=== PATIENT | female | born 1940 | race Caucasian/White ===

== ENCOUNTER 2024-04-10 23:07 | Inpatient (IN) | payer MEDICARE, BC ==
[2024-04-10] MEDS ORDERED: Sodium Chloride 0.9% 10 ML Syringe FLUSH PRN (23:37)
[2024-04-10 23:41] LABS: BASOPHILS PERCENT AUTO 0.1 % (0.0-1.0); EOSINOPHILS ABSOLUTE AUTO 0.1 K/mm3 (0.0-0.4); HEMATOCRIT 39.8 % (37.0-47.0); HEMOGLOBIN 12.7 gm/dl (12.0-16.0); IMMATURE GRAN ABSOLUTE AUTO 0.03 K/mm3 (0.00-0.05); IMMATURE GRAN PERCENT AUTO 0.3 % (0.0-0.4); LYMPHOCYTES ABSOLUTE AUTO 0.5 K/mm3 (1.0-4.8); LYMPHOCYTES PERCENT AUTO 5.3 % (24.0-44.0); MEAN CORPUSCULAR HEMOGLOBIN 28.3 pg (28.0-32.0); MEAN CORPUSCULAR HGB CONC 31.9 g/dl (32.0-36.0); MEAN CORPUSCULAR VOLUME 88.8 fl (83.0-99.0); MEAN PLATELET VOLUME 9.7 fl (9.4-12.3); MONOCYTES ABSOLUTE AUTO 0.6 K/mm3 (0.0-0.8); MONOCYTES PERCENT AUTO 6.7 % (0.0-8.0); NEUTROPHILS PERCENT AUTO 86.6 % (41.0-71.0); PLATELET COUNT,PLT 231 K/mm3 (150-400); RED BLOOD CELL COUNT 4.48 M/mm3 (4.10-5.30); WHITE BLOOD CELL COUNT,WBC 9.19 K/mm3 (3.9-11.3)
[2024-04-10] MEDS ORDERED: Piperacillin/Tazobactam 4.5 GM Vial ONE (23:42)
[2024-04-10] MEDS ORDERED: Sodium Chloride 0.9% 100 ML ONE (23:42)
[2024-04-10 23:54] LABS: INR 0.99; PROTHROMBIN TIME 10.5 SECONDS (9.7-12.0)
[2024-04-10] MEDS: Piperacillin/Tazobactam 4.5 GM in Sodium Chloride 0.9% 100 ML IV ONE (23:57)
[2024-04-10 23:59] LABS: BASE EXCESS VENOUS 6.4 (-4.0-2.0); BICARBONATE,VENOUS 31.7 meq/L (22-26); O2 SATURATION VENOUS 61.1; PCO2 VENOUS 50.5 mmHg (41-51); PH,VENOUS 7.42 (7.30-7.40)
[2024-04-11 00:01] LABS: LACTIC ACID 1.2 mmol/L (0.4-2.0)
[2024-04-11 00:04] LABS: A/G RATIO 0.6 (1-2); ALANINE AMINOTRANSFERASE,ALT 39 U/L (14-59); ALBUMIN 2.6 g/dl (3.4-5.0); ALKALINE PHOSPHATASE 166 U/L (46-116); ANION GAP 7.3 (5-15); ASPARTATE AMNIOTRANSFERASE,AST 26 U/L (15-37); BILIRUBIN TOTAL 0.6 mg/dL (0.2-1.0); BLOOD UREA NITROGEN,BUN 25 mg/dL (7-18); BUN/CREATININE RATIO 19.2 (14-18); CALCIUM 9.2 mg/dL (8.5-10.1); CARBON DIOXIDE,CO2 34 mEq/L (21-32); CHLORIDE,CL 98 mEq/L (98-107); CREATININE 1.3 mg/dL (0.55-1.02); ESTIMATED GFR 41 mL/min (>60); MAGNESIUM 1.8 mg/dL (1.8-2.4); POTASSIUM,K 3.3 mEq/L (3.5-5.1); SODIUM,NA 136 mEq/L (136-145); TROPONIN I HIGH SENSITIVITY 6 pg/mL (<=51)
[2024-04-11 00:06] LABS: GLUCOSE RANDOM 424 mg/dL (70-99)
[2024-04-11 00:29] LABS: OSMOLALITY,SERUM 297 mosm/kg (280-300)
[2024-04-11] MEDS: Sodium Chloride 0.9% 1,000 ML IV ONE (00:33)
[2024-04-11] MEDS ORDERED: Potassium Chloride 10 MEQ in Premix Bag 1 BAG IV ONE (00:57)
[2024-04-11] MEDS ORDERED: Naloxone 0.4 MG/ML SDV IVPUSH PRN (01:26)
[2024-04-11] MEDS: fentaNYL 100 MCG/2 ML SDV IVPUSH ONE (01:34)
[2024-04-11] MEDS: Potassium Chloride 10 MEQ in Premix Bag 1 BAG IV ONE ×2 (01:39→04:43)
[2024-04-11] MEDS: Insulin Regular, Human 100 Units/ML 3 ML Vial IV ONE (01:46)
[2024-04-11] MEDS: Sodium Chloride 0.9% 250 ML ONE (04:44)
[2024-04-11] MEDS: Insulin Regular, Human 100 Units/ML 10 ML Vial ONE (05:37)
[2024-04-11] MEDS: Insulin Glargine,Human Rec. Analog 100 Units/ML 3 ML Pen SUBCUT ONE (06:59)
[2024-04-11] MEDS: Sodium Chloride 0.9% 500 ML IV ONE (06:59)
[2024-04-11] MEDS ORDERED: Sennosides 8.6 MG Tab PO PRN (08:47)
[2024-04-11] MEDS ORDERED: Bisacodyl 10 MG Supp RECTAL PRN (08:47)
[2024-04-11] MEDS ORDERED: Acetaminophen 325 MG Tab PO PRN (08:47)
[2024-04-11] MEDS ORDERED: 50% Dextrose in Water 50 ML Syringe IVPUSH PRN (08:47)
[2024-04-11] MEDS ORDERED: Melatonin 3 MG Tab PO PRN (09:03)
[2024-04-11] MEDS: BREXPIPRAZOLE 3 MG PO SCH (09:17)
[2024-04-11] MEDS ORDERED: Insulin Lispro 100 Unit/ML 3 ML KwikPen SUBCUT SCH (09:30)
[2024-04-11] MEDS: Insulin Lispro 100 Unit/ML 3 ML KwikPen SUBCUT SCH ×2 (09:36→11:21)
[2024-04-11] MEDS: Doxycycline Monohydrate 100 MG Cap PO SCH (09:37)
[2024-04-11] MEDS: Enoxaparin 30 MG/0.3 ML Syringe SUBCUT SCH (09:37)
[2024-04-11] MEDS: Amoxicillin/Clavulanate K 500-125 MG Tab PO SCH (09:37)
[2024-04-11 11:04] LABS: A/G RATIO 0.6 (1-2); ALANINE AMINOTRANSFERASE,ALT 32 U/L (14-59); ALBUMIN 2.2 g/dl (3.4-5.0); ALKALINE PHOSPHATASE 143 U/L (46-116); ANION GAP 11.4 (5-15); ASPARTATE AMNIOTRANSFERASE,AST 21 U/L (15-37); BILIRUBIN TOTAL 0.7 mg/dL (0.2-1.0); BLOOD UREA NITROGEN,BUN 20 mg/dL (7-18); BUN/CREATININE RATIO 16.7 (14-18); CALCIUM 8.4 mg/dL (8.5-10.1); CARBON DIOXIDE,CO2 29 mEq/L (21-32); CHLORIDE,CL 99 mEq/L (98-107); CREATININE 1.2 mg/dL (0.55-1.02); ESTIMATED GFR 45 mL/min (>60); GLUCOSE RANDOM 384 mg/dL (70-99); MAGNESIUM 1.6 mg/dL (1.8-2.4); PHOSPHORUS 2.5 mg/dL (2.6-4.7); POTASSIUM,K 3.4 mEq/L (3.5-5.1); SODIUM,NA 136 mEq/L (136-145)
[2024-04-11 11:25] LABS: HEMATOCRIT 34.3 % (37.0-47.0); MEAN CORPUSCULAR HEMOGLOBIN 28.7 pg (28.0-32.0); MEAN CORPUSCULAR HGB CONC 32.4 g/dl (32.0-36.0); MEAN CORPUSCULAR VOLUME 88.6 fl (83.0-99.0); PLATELET COUNT,PLT 187 K/mm3 (150-400); RED BLOOD CELL COUNT 3.87 M/mm3 (4.10-5.30); WHITE BLOOD CELL COUNT,WBC 8.44 K/mm3 (3.9-11.3)
[2024-04-11 11:26] LABS: HEMOGLOBIN 11.1 gm/dl (12.0-16.0)
[2024-04-11] MEDS: Potassium Chloride 20 MEQ Tab.ER PO ONE (16:40)
[2024-04-11] MEDS: Magnesium Sulfate/Water 4 GM in Premix Bag 1 BAG IV ONE (16:40)
[2024-04-11] MEDS: Phosphorus #1 250 MG Tab PO ONE (16:40)
[2024-04-11] MEDS ORDERED: AMMONIUM LACTATE TOP SCH (21:00)
[2024-04-12 06:53] LABS: BLOOD UREA NITROGEN,BUN 20 mg/dL (7-18); CALCIUM 8.6 mg/dL (8.5-10.1); CARBON DIOXIDE,CO2 27 mEq/L (21-32); CHLORIDE,CL 103 mEq/L (98-107); ESTIMATED GFR 56 mL/min (>60); GLUCOSE RANDOM 178 mg/dL (70-99); MAGNESIUM 1.6 mg/dL (1.8-2.4); PHOSPHORUS 3.4 mg/dL (2.6-4.7); SODIUM,NA 137 mEq/L (136-145)
[2024-04-12] MEDS: Insulin Glargine,Human Rec. Analog 100 Units/ML 3 ML Pen SUBCUT SCH (08:46)
[2024-04-12] MEDS: Insulin Glargine,Human Rec. Analog 100 Units/ML 3 ML Pen SUBCUT ONE (11:20)
[2024-04-12] MEDS: Insulin Lispro 100 Unit/ML 3 ML KwikPen SUBCUT SCH (11:21)
[2024-04-12] MEDS: Magnesium Sulfate/Water 4 GM in Premix Bag 1 BAG IV ONE (11:22)
[2024-04-12] MEDS: VANCOmycin 1.25 GM/250 ML 1.25 GM in Premix Bag 1 BAG IV ONE (13:03)
[2024-04-12] MEDS: Cefepime 2 GM in Sodium Chloride 0.9% 50 ML IV SCH (13:05)
[2024-04-12] MEDS: BREXPIPRAZOLE 3 MG PO SCH (15:36)
[2024-04-12] MEDS ORDERED: Amoxicillin/Clavulanate K 875-125 MG Tab PO SCH (21:00)
[2024-04-13 06:42] LABS: BASOPHILS PERCENT AUTO 0.3 % (0.0-1.0); EOSINOPHILS ABSOLUTE AUTO 0.1 K/mm3 (0.0-0.4); EOSINOPHILS PERCENT AUTO 1.6 % (0.0-6.0); HEMATOCRIT 34.4 % (37.0-47.0); HEMOGLOBIN 11.1 gm/dl (12.0-16.0); IMMATURE GRAN ABSOLUTE AUTO 0.02 K/mm3 (0.00-0.05); IMMATURE GRAN PERCENT AUTO 0.3 % (0.0-0.4); LYMPHOCYTES ABSOLUTE AUTO 0.6 K/mm3 (1.0-4.8); LYMPHOCYTES PERCENT AUTO 9.8 % (24.0-44.0); MEAN CORPUSCULAR HEMOGLOBIN 28.3 pg (28.0-32.0); MEAN CORPUSCULAR HGB CONC 32.3 g/dl (32.0-36.0); MEAN CORPUSCULAR VOLUME 87.8 fl (83.0-99.0); MEAN PLATELET VOLUME 9.8 fl (9.4-12.3); MONOCYTES ABSOLUTE AUTO 0.5 K/mm3 (0.0-0.8); MONOCYTES PERCENT AUTO 7.9 % (0.0-8.0); NEUTROPHILS PERCENT AUTO 80.1 % (41.0-71.0); PLATELET COUNT,PLT 234 K/mm3 (150-400); RED BLOOD CELL COUNT 3.92 M/mm3 (4.10-5.30); WHITE BLOOD CELL COUNT,WBC 6.22 K/mm3 (3.9-11.3)
[2024-04-13 07:02] LABS: ANION GAP 9.9 (5-15); C-REACTIVE PROTEIN 6.16 mg/dL (<0.30); CALCIUM 8.7 mg/dL (8.5-10.1); EST CRCL DRUG DOSING (CG) 35.26 mL/min; MAGNESIUM 2.1 mg/dL (1.8-2.4); POTASSIUM,K 3.9 mEq/L (3.5-5.1); VANCOMYCIN RANDOM 12.2 ug/mL
[2024-04-13] MEDS: Insulin Glargine,Human Rec. Analog 100 Units/ML 3 ML Pen SUBCUT SCH (08:05)
[2024-04-13] MEDS: Enoxaparin 40 MG/0.4 ML Syringe SUBCUT SCH (08:05)
[2024-04-13] MEDS ORDERED: Sodium Chloride 0.9% 100 ML IV SCH (19:30)
[2024-04-13] MEDS: Sodium Chloride 0.9% 500 ML IV ONE (20:01)
[2024-04-14 05:32] LABS: BASOPHILS PERCENT AUTO 0.3 % (0.0-1.0); EOSINOPHILS ABSOLUTE AUTO 0.2 K/mm3 (0.0-0.4); EOSINOPHILS PERCENT AUTO 2.4 % (0.0-6.0); HEMATOCRIT 37.2 % (37.0-47.0); HEMOGLOBIN 12.1 gm/dl (12.0-16.0); IMMATURE GRAN ABSOLUTE AUTO 0.04 K/mm3 (0.00-0.05); IMMATURE GRAN PERCENT AUTO 0.6 % (0.0-0.4); LYMPHOCYTES ABSOLUTE AUTO 0.8 K/mm3 (1.0-4.8); LYMPHOCYTES PERCENT AUTO 12.9 % (24.0-44.0); MEAN CORPUSCULAR HEMOGLOBIN 28.4 pg (28.0-32.0); MEAN CORPUSCULAR HGB CONC 32.5 g/dl (32.0-36.0); MEAN CORPUSCULAR VOLUME 87.3 fl (83.0-99.0); MEAN PLATELET VOLUME 9.6 fl (9.4-12.3); MONOCYTES ABSOLUTE AUTO 0.6 K/mm3 (0.0-0.8); NEUTROPHILS ABSOLUTE AUTO 4.7 K/mm3 (1.8-7.7); NEUTROPHILS PERCENT AUTO 73.8 % (41.0-71.0); PLATELET COUNT,PLT 258 K/mm3 (150-400); RED BLOOD CELL COUNT 4.26 M/mm3 (4.10-5.30)
[2024-04-14 05:35] LABS: ANION GAP 11.5 (5-15); BUN/CREATININE RATIO 26.3 (14-18); C-REACTIVE PROTEIN 3.48 mg/dL (<0.30); CALCIUM 8.9 mg/dL (8.5-10.1); CREATININE 0.8 mg/dL (0.55-1.02); EST CRCL DRUG DOSING (CG) 44.08 mL/min; MAGNESIUM 1.8 mg/dL (1.8-2.4); POTASSIUM,K 3.5 mEq/L (3.5-5.1)
[2024-04-14] MEDS: Insulin Glargine,Human Rec. Analog 100 Units/ML 3 ML Pen SUBCUT SCH (08:05)
[2024-04-14] MEDS: Sodium Chloride 0.9% 500 ML IV ONE (10:08)
[2024-04-14] MEDS: Iopamidol 755 Mg/ML 100 ML Bottle IVPUSH ONE ×2 (10:12→10:15)
[2024-04-14] MEDS: Sodium Chloride 0.9% 100 ML IV SCH (10:16)
[2024-04-14] MEDS: VANCOmycin 1.25 GM/250 ML 1.25 GM in Premix Bag 1 BAG IV SCH (12:56)
[2024-04-14] MEDS: Sodium Chloride 0.9% 1,000 ML IV SCH (22:43)
[2024-04-15 04:39] LABS: BASOPHILS PERCENT AUTO 0.4 % (0.0-1.0); EOSINOPHILS ABSOLUTE AUTO 0.2 K/mm3 (0.0-0.4); EOSINOPHILS PERCENT AUTO 2.2 % (0.0-6.0); HEMATOCRIT 35.8 % (37.0-47.0); HEMOGLOBIN 11.4 gm/dl (12.0-16.0); IMMATURE GRAN ABSOLUTE AUTO 0.06 K/mm3 (0.00-0.05); IMMATURE GRAN PERCENT AUTO 0.8 % (0.0-0.4); LYMPHOCYTES ABSOLUTE AUTO 1.1 K/mm3 (1.0-4.8); LYMPHOCYTES PERCENT AUTO 14.8 % (24.0-44.0); MEAN CORPUSCULAR HEMOGLOBIN 27.9 pg (28.0-32.0); MEAN CORPUSCULAR HGB CONC 31.8 g/dl (32.0-36.0); MEAN CORPUSCULAR VOLUME 87.5 fl (83.0-99.0); MEAN PLATELET VOLUME 9.3 fl (9.4-12.3); MONOCYTES ABSOLUTE AUTO 0.7 K/mm3 (0.0-0.8); MONOCYTES PERCENT AUTO 8.9 % (0.0-8.0); NEUTROPHILS ABSOLUTE AUTO 5.5 K/mm3 (1.8-7.7); NEUTROPHILS PERCENT AUTO 72.9 % (41.0-71.0); PLATELET COUNT,PLT 254 K/mm3 (150-400); RED BLOOD CELL COUNT 4.09 M/mm3 (4.10-5.30); WHITE BLOOD CELL COUNT,WBC 7.57 K/mm3 (3.9-11.3)
[2024-04-15 05:07] LABS: BUN/CREATININE RATIO 27.8 (14-18); C-REACTIVE PROTEIN 2.33 mg/dL (<0.30); CALCIUM 8.6 mg/dL (8.5-10.1); CREATININE 0.9 mg/dL (0.55-1.02); EST CRCL DRUG DOSING (CG) 39.18 mL/min
[2024-04-15] MEDS ORDERED: Sodium Chloride 0.9% 10 ML Syringe FLUSH PRN (13:32)
[2024-04-15] MEDS ORDERED: Ondansetron 4 MG/2 ML SDV IVPUSH PRN ×2 (13:36→16:11)
[2024-04-15] MEDS ORDERED: fentaNYL 100 MCG/2 ML SDV IVPUSH PRN ×2 (13:36→23:59)
[2024-04-15] MEDS ORDERED: HYDROmorphone 0.5 MG/0.5 ML Syringe IVPUSH PRN ×2 (13:36→16:11)
[2024-04-15] MEDS ORDERED: Lactated Ringers 1,000 ML IV SCH (13:45)
[2024-04-15] MEDS: Hyaluronidase, Human Recomb. 150 Unit/ML Vial SUBCUT ONE (14:16)
[2024-04-15] MEDS ORDERED: Lidocaine 2% 5 ML SDV ONE (14:53)
[2024-04-15] MEDS ORDERED: Midazolam 1 MG/ML 2 ML SDV ONE (14:53)
[2024-04-15] MEDS ORDERED: Bupivacaine 0.5% 30 ML SDV ONE (14:54)
[2024-04-15] MEDS ORDERED: Propofol 200 MG/20 ML SDV ONE ×2 (15:51→15:52)
[2024-04-15] MEDS ORDERED: Sodium Chloride 0.9% 100 ML ONE (15:51)
[2024-04-15] MEDS ORDERED: dexmedeTOMIDine HCl 200 MCG/2 ML SDV ONE (15:51)
[2024-04-15] MEDS ORDERED: ePHEDrine 50 MG/ML SDV ONE (16:10)
[2024-04-15] MEDS: Sodium Chloride 0.9% 10 ML Syringe FLUSH SCH (21:05)
[2024-04-16 04:53] LABS: BASOPHILS PERCENT AUTO 0.4 % (0.0-1.0); EOSINOPHILS ABSOLUTE AUTO 0.1 K/mm3 (0.0-0.4); EOSINOPHILS PERCENT AUTO 1.9 % (0.0-6.0); HEMATOCRIT 36.2 % (37.0-47.0); IMMATURE GRAN ABSOLUTE AUTO 0.04 K/mm3 (0.00-0.05); IMMATURE GRAN PERCENT AUTO 0.6 % (0.0-0.4); LYMPHOCYTES ABSOLUTE AUTO 0.8 K/mm3 (1.0-4.8); LYMPHOCYTES PERCENT AUTO 10.9 % (24.0-44.0); MEAN CORPUSCULAR HEMOGLOBIN 28.8 pg (28.0-32.0); MEAN CORPUSCULAR HGB CONC 33.1 g/dl (32.0-36.0); MEAN PLATELET VOLUME 9.7 fl (9.4-12.3); MONOCYTES ABSOLUTE AUTO 0.6 K/mm3 (0.0-0.8); MONOCYTES PERCENT AUTO 9.2 % (0.0-8.0); NEUTROPHILS ABSOLUTE AUTO 5.3 K/mm3 (1.8-7.7); PLATELET COUNT,PLT 230 K/mm3 (150-400); RED BLOOD CELL COUNT 4.16 M/mm3 (4.10-5.30); WHITE BLOOD CELL COUNT,WBC 6.85 K/mm3 (3.9-11.3)
[2024-04-16 05:22] LABS: ANION GAP 12.6 (5-15); BUN/CREATININE RATIO 17.8 (14-18); C-REACTIVE PROTEIN 1.44 mg/dL (<0.30); CALCIUM 8.3 mg/dL (8.5-10.1); CREATININE 0.9 mg/dL (0.55-1.02); EST CRCL DRUG DOSING (CG) 39.18 mL/min; MAGNESIUM 1.8 mg/dL (1.8-2.4); POTASSIUM,K 3.6 mEq/L (3.5-5.1)
[2024-04-16] MEDS: Insulin Glargine,Human Rec. Analog 100 Units/ML 3 ML Pen SUBCUT SCH (08:55)
[2024-04-16] MEDS: Sulfamethoxazole/Trimethoprim 800-160 MG Tab PO SCH (10:26)
== END 2024-04-16 15:04 | DRG 623 ==
LOC: JD.ED 23:07 → JD.MS 04-11 06:15 → OBSVTOIN 04-12 11:28
PROVIDERS: ADMIT Student in an Organized Health Care Education/Training Program; ATTEND Student in an Organized Health Care Education/Training Program
PROC: 0JBR0ZZ Excision of Left Foot Subcutaneous Tissue and Fascia, Open Approach (ICD-10-PCS; principal; 2024-04-15 14:15)
DX: E11.628 Type 2 diabetes mellitus with other skin complications (principal); L03.116 Cellulitis of left lower limb; L97.429 Non-pressure chronic ulcer of left heel and midfoot with unspecified severity; L97.419 Non-pressure chronic ulcer of right heel and midfoot with unspecified severity; E11.621 Type 2 diabetes mellitus with foot ulcer; Z66 Do not resuscitate; E11.65 Type 2 diabetes mellitus with hyperglycemia; I10 Essential (primary) hypertension; E78.00 Pure hypercholesterolemia, unspecified; N17.9 Acute kidney failure, unspecified; E11.42 Type 2 diabetes mellitus with diabetic polyneuropathy; F02.C0 Dementia in other diseases classified elsewhere, severe, without behavioral disturbance, psychotic disturbance, mood disturbance, and anxiety; E03.9 Hypothyroidism, unspecified; E83.42 Hypomagnesemia; E87.6 Hypokalemia; E88.09 Other disorders of plasma-protein metabolism, not elsewhere classified; E83.39 Other disorders of phosphorus metabolism; G30.1 Alzheimer's disease with late onset; Z79.4 Long term (current) use of insulin; Z79.899 Other long term (current) drug therapy; Z22.322 Carrier or suspected carrier of Methicillin resistant Staphylococcus aureus
CPT/HCPCS: 36415; 71045; 71045-26; 75635; 75635-26; 80048; 80053; 80202; 82803; 82947; 83605; 83735; 83880; 83930; 84100; 84484; 85025; 85027; 85610; 85730; 86140; 87040; 87641; 93925; 93925-26; 93970; 93970-26; 94760; 94761; 96361; 96365; 96366; 96367; 96368; 96372; 96375; 96376; 97110-GP; 97161-GP; 99285; 99285-25; A9270-GY; G0378; J0665; J0692; J1650; J1815; J1815-GY; J2250; J2543; J2704; J3010; J3370; J3372; J3475; J3480; J3490; J7030; J7050; J7120; Q9967; U0002

== ENCOUNTER 2025-01-16 09:37 | Inpatient (IN) | payer MEDICARE, BC ==
[2025-01-16] MEDS: Sodium Chloride 0.9% 1,000 ML IV ONE ×2 (10:10→11:55)
[2025-01-16] MEDS: Acetaminophen 650 MG Supp RECTAL ONE (10:10)
[2025-01-16] MEDS: Sodium Chloride 0.9% 10 ML Syringe FLUSH PRN (10:11)
[2025-01-16] MEDS: Piperacillin/Tazobactam 4.5 GM in Sodium Chloride 0.9% 100 ML IV STA (10:15)
[2025-01-16 10:16] LABS: HEMATOCRIT 35.5 % (37.0-47.0); HEMOGLOBIN 11.2 gm/dl (12.0-16.0); MEAN CORPUSCULAR HEMOGLOBIN 29.2 pg (28.0-32.0); MEAN CORPUSCULAR HGB CONC 31.5 g/dl (32.0-36.0); MEAN PLATELET VOLUME 9.9 fl (9.4-12.3); PLATELET COUNT,PLT 190 K/mm3 (150-400); RED BLOOD CELL COUNT 3.84 M/mm3 (4.10-5.30); WHITE BLOOD CELL COUNT,WBC 9.13 K/mm3 (3.9-11.3)
[2025-01-16 10:18] LABS: MEAN CORPUSCULAR VOLUME 92.4 fl (83.0-99.0)
[2025-01-16 10:27] LABS: APPEARANCE,URINE SLT CLOUDY (Clear); BILIRUBIN,URINE NEGATIVE (Negative); COLOR,URINE YELLOW (Yellow); GLUCOSE,URINE NEGATIVE (Negative); KETONES,URINE NEGATIVE (Negative); LEUKOCYTE ESTERASE,URINE 1+ (Negative); NITRITE,URINE NEGATIVE (Negative); OCCULT BLOOD,URINE 1+ (Negative); PROTEIN,URINE 2+ (Negative); UROBILINOGEN,URINE 0.2 (0.2-1.0)
[2025-01-16 10:29] LABS: INR 1.05; PROTHROMBIN TIME 11.1 SECONDS (9.7-12.0)
[2025-01-16 10:32] LABS: A/G RATIO 0.7 (1-2); ALBUMIN 2.6 g/dl (3.4-5.0); ANION GAP 11.3 (5-15); BILIRUBIN TOTAL 0.6 mg/dL (0.2-1.0); BUN/CREATININE RATIO 29.4 (14-18); C-REACTIVE PROTEIN 10.29 mg/dL (<0.30); CALCIUM 9.1 mg/dL (8.5-10.1); CREATININE 1.7 mg/dL (0.55-1.02); EST CRCL DRUG DOSING (CG) 22.17 mL/min; POTASSIUM,K 4.3 mEq/L (3.5-5.1); PROTEIN TOTAL,TP 6.5 g/dl (6.4-8.2)
[2025-01-16 10:42] LABS: BAND PERCENT MAN 0 % (0-10); BASOPHILS PERCENT MAN 0 (0.1-1.2); EOSINOPHILS PERCENT MAN 1 % (0.7-5.8); LYMPHOCYTES % ATYPICAL MANUAL 0 %; LYMPHOCYTES PERCENT MAN 1 % (20-40); MONOCYTES PERCENT MAN 0 % (2-10)
[2025-01-16 10:46] LABS: STOMATOCYTES FEW
[2025-01-16 10:48] LABS: PLATELET COUNT ESTIMATE ADEQUATE; TOXIC GRANULATION 1+ SLIGHT
[2025-01-16 10:53] LABS: BACTERIA,URINE MANY /hpf (FEW); EPITHELIAL CELLS,URINE 0-5 /hpf (0-5); MUCUS,URINE FEW /hpf (FEW); RBC,URINE 0-5 /hpf (0-5)
[2025-01-16] MEDS ORDERED: Acetaminophen 325 MG Tab PO PRN (12:15)
[2025-01-16 12:26] LABS: CORONAVIRUS COVID-19 NAA NEGATIVE (NEGATIVE); INFLUENZA A NAA NEGATIVE (NEGATIVE); RESPIRATORY SYNCYTIAL VIR NAA NEGATIVE (NEGATIVE)
[2025-01-16] MEDS: Lactated Ringers 500 ML IV ONE (13:03)
[2025-01-16] MEDS ORDERED: 50% Dextrose in Water 50 ML Syringe IVPUSH PRN (13:24)
[2025-01-16] MEDS: Sodium Chloride 0.9% 500 ML IV ONE (14:20)
[2025-01-16] MEDS: VANCOmycin 1.5 GM/300 ML 1.5 GM in Premix Bag 1 BAG IV ONE (15:51)
[2025-01-16] MEDS: Insulin Lispro 100 Unit/ML 3 ML KwikPen SUBCUT SCH (16:43)
[2025-01-16] MEDS: Sodium Chloride 0.9% 500 ML ONE (16:49)
[2025-01-16] MEDS: Sodium Chloride 0.9% 1,000 ML IV SCH (16:56)
[2025-01-16] MEDS: cefTRIAXone 1 GM Vial IVPUSH SCH (17:00)
[2025-01-16 17:50] LABS: LACTIC ACID 1.2 mmol/L (0.4-2.0)
[2025-01-17 05:43] LABS: A/G RATIO 0.5 (1-2); ALBUMIN 1.9 g/dl (3.4-5.0); ANION GAP 10.1 (5-15); BILIRUBIN TOTAL 0.4 mg/dL (0.2-1.0); BUN/CREATININE RATIO 27.5 (14-18); C-REACTIVE PROTEIN 14.47 mg/dL (<0.30); CALCIUM 8.1 mg/dL (8.5-10.1); CREATININE 1.2 mg/dL (0.55-1.02); EST CRCL DRUG DOSING (CG) 37.53 mL/min; POTASSIUM,K 3.1 mEq/L (3.5-5.1); PROTEIN TOTAL,TP 5.4 g/dl (6.4-8.2)
[2025-01-17 05:47] LABS: BASOPHILS PERCENT AUTO 0.2 % (0.0-1.0); HEMATOCRIT 29.9 % (37.0-47.0); HEMOGLOBIN 9.3 gm/dl (12.0-16.0); IMMATURE GRAN ABSOLUTE AUTO 0.05 K/mm3 (0.00-0.05); IMMATURE GRAN PERCENT AUTO 0.6 % (0.0-0.4); LYMPHOCYTES ABSOLUTE AUTO 0.7 K/mm3 (1.0-4.8); LYMPHOCYTES PERCENT AUTO 7.7 % (24.0-44.0); MEAN CORPUSCULAR HEMOGLOBIN 29.2 pg (28.0-32.0); MEAN CORPUSCULAR HGB CONC 31.1 g/dl (32.0-36.0); MEAN CORPUSCULAR VOLUME 93.7 fl (83.0-99.0); MEAN PLATELET VOLUME 10.3 fl (9.4-12.3); MONOCYTES PERCENT AUTO 11.6 % (0.0-8.0); NEUTROPHILS ABSOLUTE AUTO 6.8 K/mm3 (1.8-7.7); NEUTROPHILS PERCENT AUTO 79.9 % (41.0-71.0); PLATELET COUNT,PLT 168 K/mm3 (150-400); RED BLOOD CELL COUNT 3.19 M/mm3 (4.10-5.30); WHITE BLOOD CELL COUNT,WBC 8.47 K/mm3 (3.9-11.3)
[2025-01-17] MEDS: Enoxaparin 30 MG/0.3 ML Syringe SUBCUT SCH (08:40)
[2025-01-17] MEDS: Potassium Chloride 20 MEQ Tab.ER PO ONE (08:40)
[2025-01-17 08:41] LABS: MAGNESIUM 1.6 mg/dL (1.8-2.4)
[2025-01-17] MEDS: Magnesium Sulfate 2 GM/50 mL 2 GM/50 ML BAG IV ONE (13:18)
[2025-01-17] MEDS ORDERED: VANCOmycin 0.75 GM in Sodium Chloride 0.9% 250 ML IV ONE (15:00)
[2025-01-18 04:35] LABS: BASOPHILS PERCENT AUTO 0.3 % (0.0-1.0); EOSINOPHILS ABSOLUTE AUTO 0.1 K/mm3 (0.0-0.4); EOSINOPHILS PERCENT AUTO 1.5 % (0.0-6.0); HEMATOCRIT 31.9 % (37.0-47.0); IMMATURE GRAN ABSOLUTE AUTO 0.01 K/mm3 (0.00-0.05); IMMATURE GRAN PERCENT AUTO 0.2 % (0.0-0.4); LYMPHOCYTES ABSOLUTE AUTO 0.5 K/mm3 (1.0-4.8); MEAN CORPUSCULAR HEMOGLOBIN 28.9 pg (28.0-32.0); MEAN CORPUSCULAR HGB CONC 31.3 g/dl (32.0-36.0); MEAN CORPUSCULAR VOLUME 92.2 fl (83.0-99.0); MEAN PLATELET VOLUME 9.9 fl (9.4-12.3); MONOCYTES ABSOLUTE AUTO 0.8 K/mm3 (0.0-0.8); MONOCYTES PERCENT AUTO 11.6 % (0.0-8.0); NEUTROPHILS ABSOLUTE AUTO 5.1 K/mm3 (1.8-7.7); NEUTROPHILS PERCENT AUTO 78.4 % (41.0-71.0); PLATELET COUNT,PLT 153 K/mm3 (150-400); RED BLOOD CELL COUNT 3.46 M/mm3 (4.10-5.30); WHITE BLOOD CELL COUNT,WBC 6.53 K/mm3 (3.9-11.3)
[2025-01-18 05:15] LABS: A/G RATIO 0.5 (1-2); ANION GAP 9.3 (5-15); BILIRUBIN TOTAL 0.6 mg/dL (0.2-1.0); BUN/CREATININE RATIO 23.6 (14-18); C-REACTIVE PROTEIN 14.39 mg/dL (<0.30); CALCIUM 8.4 mg/dL (8.5-10.1); CREATININE 1.1 mg/dL (0.55-1.02); EST CRCL DRUG DOSING (CG) 34.26 mL/min; PHOSPHORUS 2.4 mg/dL (2.6-4.7); POTASSIUM,K 4.3 mEq/L (3.5-5.1); PROTEIN TOTAL,TP 5.9 g/dl (6.4-8.2)
[2025-01-18] MEDS: Enoxaparin 40 MG/0.4 ML Syringe SUBCUT SCH (08:02)
[2025-01-18] MEDS: Sennosides/Docusate Sodium 50-8.6 MG Tab PO PRN (09:17)
[2025-01-18] MEDS: Sodium Phosphate 30 MMOLE in Sodium Chloride 0.9% 250 ML IV ONE (11:31)
[2025-01-18] MEDS ORDERED: Non-Formulary Medication 1 Each (Memantine Hcl/Donepezil Hcl [Namzaric 28 Mg-10 Mg Capsule PO SCH (21:00)
[2025-01-19 05:06] LABS: A/G RATIO 0.5 (1-2); ALBUMIN 1.8 g/dl (3.4-5.0); ANION GAP 12.6 (5-15); BILIRUBIN TOTAL 0.4 mg/dL (0.2-1.0); BUN/CREATININE RATIO 18.9 (14-18); C-REACTIVE PROTEIN 10.04 mg/dL (<0.30); CALCIUM 8.3 mg/dL (8.5-10.1); CREATININE 0.9 mg/dL (0.55-1.02); EST CRCL DRUG DOSING (CG) 41.87 mL/min; MAGNESIUM 1.6 mg/dL (1.8-2.4); POTASSIUM,K 3.6 mEq/L (3.5-5.1); PROTEIN TOTAL,TP 5.6 g/dl (6.4-8.2)
[2025-01-19] MEDS: Albuterol/Ipratropium 3.0-0.5 MG/3 ML Neb Soln NEB PRN (08:37)
[2025-01-19] MEDS: Docusate Sodium 100 MG Cap PO SCH (08:44)
[2025-01-19] MEDS: Magnesium Sulf/Wat 4 GM/50 mL 4 GM in Premix Bag 1 BAG IV ONE (08:44)
[2025-01-19] MEDS: Lisinopril 2.5 MG Tab PO SCH (08:44)
[2025-01-19] MEDS: Potassium Chloride 20 MEQ Tab.ER PO ONE (08:44)
[2025-01-19] MEDS: Insulin Glargine,Human Rec. Analog 100 Units/ML 3 ML Pen SUBCUT SCH (08:45)
[2025-01-19] MEDS: Furosemide 40 MG/4 ML VIAL IVPUSH ONE (16:38)
[2025-01-20 05:16] LABS: BUN/CREATININE RATIO 17.3 (14-18); CALCIUM 8.8 mg/dL (8.5-10.1); CREATININE 1.1 mg/dL (0.55-1.02); EST CRCL DRUG DOSING (CG) 34.26 mL/min; MAGNESIUM 2.3 mg/dL (1.8-2.4)
[2025-01-20] MEDS: Furosemide 40 MG Tab PO SCH (09:28)
[2025-01-20] MEDS: Insulin Glargine,Human Rec. Analog 100 Units/ML 3 ML Pen SUBCUT SCH (09:29)
[2025-01-20] MEDS: cefTRIAXone 1 GM Vial IVPUSH SCH (12:10)
== END 2025-01-20 12:30 | DRG 871 ==
LOC: JD.ED 09:37 → JD.MS 11:48 → JD.ICU 15:24 → JD.MS 01-18 15:00 → JD.ICU 01-18 15:08
PROVIDERS: ADMIT Family Medicine; ATTEND Student in an Organized Health Care Education/Training Program
DX: A41.9 Sepsis, unspecified organism (principal); A41.51 Sepsis due to Escherichia coli [E. coli]; N28.9 Disorder of kidney and ureter, unspecified; R09.02 Hypoxemia; G93.41 Metabolic encephalopathy; J96.01 Acute respiratory failure with hypoxia; R65.21 Severe sepsis with septic shock; N39.0 Urinary tract infection, site not specified; L97.429 Non-pressure chronic ulcer of left heel and midfoot with unspecified severity; E87.20 Acidosis, unspecified; J98.11 Atelectasis; Z16.23 Resistance to quinolones and fluoroquinolones; N17.9 Acute kidney failure, unspecified; Z66 Do not resuscitate; G30.9 Alzheimer's disease, unspecified; F02.80 Dementia in other diseases classified elsewhere, unspecified severity, without behavioral disturbance, psychotic disturbance, mood disturbance, and anxiety; E11.9 Type 2 diabetes mellitus without complications; E03.9 Hypothyroidism, unspecified; I10 Essential (primary) hypertension; E78.00 Pure hypercholesterolemia, unspecified; E87.6 Hypokalemia; E83.42 Hypomagnesemia; E83.39 Other disorders of phosphorus metabolism; E86.0 Dehydration; Z79.899 Other long term (current) drug therapy; Z79.4 Long term (current) use of insulin
CPT/HCPCS: 0241U; 36415; 71045; 80048; 80053; 81001; 82947; 83605; 83735; 84100; 85007; 85025; 85027; 85610; 86140; 87040; 87077; 87086; 87088; 87154; 87186; 87641; 94640; 94761; 96361; 96365; 97162; 97530; 99285; A9270-GY; C1758; J0696; J1650; J1815; J1815-GY; J1938; J2543; J3372; J3475; J3490; J7030; J7120